=== PATIENT | female | born 1965 | race Caucasian/White ===

== ENCOUNTER 2019-09-04 06:35 | Emergency (ER) | payer OTHER ==
[2019-09-04] MEDS ORDERED: TORAdol 30 mg Injection ONE (07:19)
[2019-09-04] MEDS ORDERED: Norflex 60 MG/2 ML ONE (07:19)
[2019-09-04] MEDS: TORAdol 30 mg Injection IM ONE (07:23)
[2019-09-04] MEDS: Norflex 60 MG/2 ML IM ONE (07:24)
--- NOTE | 2019-09-04 07:56 | ERPHSYRPT ---
- History of Present Illness Time Seen by Provider: 09/04/19 07:20 Source: patient Exam Limitations: no limitations Patient Subjective Stated Complaint: pt states she thinks her sciatica is acting up, pt states that the pain began , pt states that she has went to the chiropractor to help with the pain, pt states that she had on and off pain for the past month, pt states that she seen a chiropractor 2 weeks ago, pt states that she does have relief after the visit, pt states that she is worried that there is something more wrong Triage Nursing Assessment: pt ambulated into the er, pt axo x3, c/o left hip and leg pain, denies and injury or fall, pt has strong pulses to LLE, strong pushes and pulls, hypertensive, c/o 8/10 pain to left leg Physician History: 53 years old female with history of hypertension, back pain/sciatica presented in the ER with 5 days history of pain left lower back and left lower extremity. Patient reports sharp shooting pain moderate intensity, aggravated with activity and better with resting, goes down and to left anterior leg without any associated weakness but does have chronic numbness in the left anterior leg which is not any worse than usual. Denies any fall or trauma. Denies any loss of bowel or bladder control. Patient saw chiropractor few days ago with no significant relief. Related to previous episodes of sciatica. Timing/Duration: day(s), worse Method of Injury: unknown Back Pain Radiation: buttocks, upper legs, lower legs Severity of Pain-Max: moderate Severity of Pain-Current: moderate Modifying Factors: Improves With: immobilization, movement, rest Previous symptoms: same symptoms as today Allergies/Adverse Reactions: No Known Drug Allergies Allergy (Verified 07/27/15 03:28) Home Medications: Atorvastatin Calcium [Lipitor] 20 tab PO HS 03/05/13 [History] Lisinopril 10 mg [Zestril 10 MG] 1 tab PO HS 03/05/13 [History] dilTIAZem HCL [Diltiazem HCl] 30 tab PO HS 03/05/13 [History] Hx Tetanus, Diphtheria Vaccination/Date Given: Yes Hx Influenza Vaccination/Date Given: Yes Hx Pneumococcal Vaccination/Date Given: No Travel Risk - International Travel Have you traveled outside of the country in past 3 weeks: No - Coronavirus Screening Are you exhibiting any of the following symptoms?: No Close contact with a COVID-19 positive Pt in past 14-21 Days: No - Review of Systems Constitutional: No Symptoms Eyes: No Symptoms Ears, Nose, & Throat: No Symptoms Respiratory: No Symptoms Cardiac: No Symptoms Abdominal/Gastrointestinal: No Symptoms Genitourinary Symptoms: No Symptoms Musculoskeletal: Back Pain Skin: No Symptoms Psychological: No Symptoms Endocrine: No Symptoms Hematologic/Lymphatic: No Symptoms Immunological/Allergic: No Symptoms - Past Medical History Pertinent Past Medical History: Yes (HTN, UTI) Cardiac History: High Cholesterol, Hypertension History: Other - Past Surgical History Past Surgical History: Yes Female Surgical History: Section - Social History Smoking Status: Never smoker Exposure to second hand smoke: No Drug Use: none Patient Lives Alone: No - Female History Hx Now: No - Nursing Vital Signs Nursing Vital Signs: Initial Vital Signs Temperature 98.6 F 09/04/19 06:47 Pulse Rate 63 09/04/19 06:47 Respiratory Rate 17 09/04/19 06:47 Blood Pressure 150/75 09/04/19 06:47 O2 Sat by Pulse Oximetry 98 09/04/19 06:47 Pain Scale Pain Intensity 8 - Physical Exam General Appearance: no apparent distress Eye Exam: PERRL/EOMI Ears, Nose, Throat Exam: normal ENT inspection, pharynx normal Neck Exam: normal inspection, non-tender, full range of motion Respiratory Exam: normal breath sounds, lungs clear Cardiovascular Exam: regular rate/rhythm, normal heart sounds Gastrointestinal Exam: soft, normal bowel sounds, tenderness Back Exam: normal inspection, normal range of motion, other (Left buttock area), No vertebral tenderness Extremity Exam: normal inspection, normal range of motion, pelvis stable, other (Right leg raising test positive at 60 degrees on the left) Neurologic Exam: alert, oriented x 3, cooperative, normal mood/affect, nml station & gait, motor deficits Skin Exam: normal color SpO2 Interpretation: normal SpO2: 98 O2 Delivery: Room Air Ordered Tests: Medication Summary Discontinued Medications Generic Name Dose Route Start Last Admin Trade Name Freq PRN Reason Stop Dose Admin Ketorolac Tromethamine 30 mg 09/04/19 07:17 09/04/19 07:23 Toradol 30 Mg Injection IM 09/04/19 07:18 30 mg STAT ONE Administration Ketorolac Tromethamine Confirm 09/04/19 07:19 Toradol 30 Mg Injection Administered 09/04/19 07:20 Dose 30 mg .ROUTE .STK-MED ONE Orphenadrine Citrate 60 mg 09/04/19 07:17 09/04/19 07:24 Norflex 60 Mg/2 Ml IM 09/04/19 07:18 60 mg STAT ONE Administration Orphenadrine Citrate Confirm 09/04/19 07:19 Norflex 60 Mg/2 Ml Administered 09/04/19 07:20 Dose 60 mg .ROUTE .STK-MED ONE - Progress Progress: improved, re-examined Progress Note: 09/04/19 07:55 She is given Toradol and Norflex, on reevaluation feeling much better. Eilud estrada patient has sciatica. She previously have imaging done with no acute findings. I do not think patient needs imaging again today. I will discharge her on NSAIDs and muscle relaxants. No signs of cellulitis in the left lower extremity are DVT. Do not think she needs any f work-up and is stable for discharge patient follow-up. Discussed signs symptoms of worsening needing return to ER which she seems understanding. Counseled pt/family regarding: diagnosis, need for follow-up - Departure Departure Disposition: Home Clinical Impression: Sciatica Qualifiers: Laterality: left Qualified Code(s): M54.32 - Sciatica, left side Condition: Stable Critical Care Time: No Referrals: BRAYDEN GREGORIO MD [Primary Care Provider] - (12 days for reevaluation) Instructions: Sciatica (DC) Additional Instructions: Tylenol/ibuprofen as needed. Follow-up with primary care for reevaluation. Return to ER for intractable pain, numbness/weakness of lower extremities/loss of bowel or bladder control or perineal numbness. Prescriptions: Ibuprofen 600 mg PO Q6HPRN PRN 10 Days #20 tablet PRN Reason: Pain Cyclobenzaprine HCl 10 mg [Flexeril 10 MG] 10 mg PO TID #12 tablet
[2019-09-04 08:47] VITALS: BP 135/60; O2SAT 97
[2019-09-04 09:03] VITALS: PULSE 63
== END 2019-09-04 08:55 | disposition home or self-care (01) ==
LOC: ED 06:35
DX: M54.32 Sciatica, left side (principal)
CPT/HCPCS: 96372; 99284; J1885; J2360